=== PATIENT | male | born 1980 ===

== ENCOUNTER 2023-08-26 06:00 | Day surgery (SDC) | payer OTHER ==
[2023-08-22 10:42] LABS: HEMATOCRIT 41.4 % (39.0-48.0); HEMOGLOBIN 14.3 g/dL (13-16.00); MEAN CELL VOLUME 93.6 fL (80.0-100.00); MEAN CORPUSCULAR HEMOGLOBIN 32.3 pg (27.00-32.0); MEAN CORPUSCULAR HGB CONC 34.5 g/dl (32.0-36.0); PLATELET COUNT 287 K/uL (150-450); RED BLOOD COUNT 4.43 M/uL (4.00-6.00); RED CELL DISTRIBUTION WIDTH 13.3 % (11.5-14.5)
[2023-08-22 11:11] LABS: ALBUMIN 4.2 gm/dL (3.4-5.0); BILIRUBIN TOTAL 0.42 mg/dL (0.3-1.2); CALCIUM 9.4 mg/dL (8.5-10.1); CREATININE SERUM 0.8 mg/dL (0.70-1.30); GFR 106.01; GLOBULINA 3.9 G/DL (2.4-3.5); INR 0.98; PARTIAL THROMBOPLASTIN TIME 31.7 SECONDS (22.0-34.0); POTASSIUM 4.34 mEq/L (3.5-5.1); PROTHROMBIN TIME 10.3 SECONDS (9.0-11.5); TOTAL PROTEIN 8.1 gm/dL (6.4-8.2)
[2023-08-22 11:53] LABS: URINE APPEARANCE Clear; URINE BILIRRUBIN Negative (NEGATIVE); URINE BLOOD Negative; URINE COLOR Yellow; URINE GLUCOSE Negative (NEGATIVE); URINE LEUKOCYTE Negative; URINE NITRATE Negative; URINE PROTEIN Negative (NEGATIVE); URINE UROBILINOGEN 0.2 E.U./dl
[2023-08-22 11:58] LABS: URINE BACTERIA 11.3 uL (0.0-1933)
[2023-08-22 12:33] LABS: URINE EPITHELIAL CELLS 1.3 uL (0.0-38.8); URINE RBC 1.5 uL (0.0-20.8); URINE WBC 1.3 uL (0.0-23.2)
[~2023-08-26] VITALS: Ht 167.6 cm; Wt 74.8 kg
[~2023-08-26 06:00] MED LIST: COMBIGAN EYE DRO5 ML OP; M/A
== END 2023-08-26 17:40 | disposition home or self-care (01) ==
LOC: CIR.AMB 06:00
PROVIDERS: ATTEND Specialist
DX: K40.90 Unilateral inguinal hernia, without obstruction or gangrene, not specified as recurrent (principal); Z20.822 Contact with and (suspected) exposure to COVID-19
CPT/HCPCS: 49505; C1781